=== PATIENT | female | born 1980 | race Caucasian/White ===

== ENCOUNTER 2017-03-17 16:32 | Inpatient (IN) | payer MEDICAID ==
[~2017-03-17] VITALS: Ht 172.7 cm; Wt 61.6 kg
[~2017-03-17 16:32] MED LIST: FAM20T PO; GABA-497 PO
[2017-03-17 20:00] LABS: Basophils # (auto) 0 uL; Basophils % (auto) 0.3 % (0.0-2.0); CONDITION Y; DEFINITIVE SEE PRINTOUT; Eosinophils # (auto) 0 uL; Eosinophils % (auto) 0.2 % (0.0-7.0); Hematocrit 13.5 % (36.0-46.0); Lymphocytes # (auto) 1.2 uL; Lymphocytes % (auto) 13.4 % (10.0-50.0); Mean Corpuscular Hemoglobin 32.2 pg (28.0-32.0); Mean Platelet Volume 8.1 fL (7.4-10.4); Monocytes # (auto) 0.9 uL; Monocytes % (auto) 9.6 % (0.0-12.0); Neutrophils # (auto) 6.8 uL; Neutrophils % (auto) 76.5 % (37.0-80.0); Platelet Count (auto) 259 10^3/uL (140-450); Red Cell Distribution Width 18.8 % (11.6-16.0); White Blood Cell 8.9 10^3/uL (4.4-10.8)
[2017-03-17 20:14] LABS: Albumin 3.6 g/dL (3.4-5.0); Anion Gap 13 (5-15); Aspartate Aminotransferase 39 U/L (15-37); BUN/Creatinine Ratio 15.2; Blood Urea Nitrogen 37 mg/dL (7-18); Carbon Dioxide 21 mmol/L (21-32); Chloride 101 mmol/L (98-107); GFR African American 28 mL/min; GFR Non-African American 23 mL/min; Glucose 138 mg/dL (74-106); Potassium 4.2 mmol/L (3.5-5.1); Sodium 135 mmol/L (136-145)
[2017-03-17 20:18] LABS: Alkaline Phosphatase 90 U/L (45-117); Bilirubin, Total 0.4 mg/dL (0.2-1.0); Total Protein 7.8 g/dL (6.4-8.2)
[2017-03-17 20:28] LABS: Hemoglobin 4.7 g/dL (12.2-16.2)
[2017-03-17] MEDS ORDERED: LORazepam 2MG/ML-1ML VIAL IV ONE (20:45)
[2017-03-17] MEDS ORDERED: SODIUM CHLORIDE 0.9% 1,000 ML IV ONE (20:59)
[2017-03-17] MEDS ORDERED: FAMOTIDINE (10MG/ML) 2ML VL IV ONE (21:00)
[2017-03-17] MEDS ORDERED: ONDANSETRON HCL 4 MG/2 ML VIAL IV ONE (21:00)
[2017-03-17 21:44] LABS: Magnesium 2.6 mg/dL (1.6-2.6)
[2017-03-17 21:52] LABS: INR 1.05 (0.9-1.15); Partial Thromboplastin Time 20.1 sec (22.64-33.71); Prothrombin Time 11.5 sec (9.37-12.3)
[2017-03-17 21:59] LABS: Urine Bilirubin Negative (Negative); Urine Color Red (Yellow); Urine Glucose Normal (Normal); Urine Ketone TRACE (Negative); Urine Nitrite Negative (Negative); Urine RBC 3362 /hpf (0 - 4); Urine Urobilinogen Normal (Negative); Urine pH 5.5 (5.0-8.0)
[2017-03-17 22:02] LABS: Urine Blood 3+ /uL (Negative)
[2017-03-18] VITALS (15 sets, daily range): BP systolic 106–139; BP diastolic 68–84
[2017-03-18] MEDS ORDERED: PANTOPRAZOLE SODIUM 40 MG/10 ML VIAL IV ONE (01:45)
[2017-03-18] MEDS ORDERED: MORPHINE SULF INJ 2 MG/ML SYRINGE 1ML IV PRN (01:45)
[2017-03-18] MEDS ORDERED: ACETAMINOPHEN 325 MG TAB PO PRN (01:45)
[2017-03-18] MEDS ORDERED: TEMAZEPAM 15 MG CAP PO PRN (01:45)
[2017-03-18] MEDS ORDERED: NITROGLYCERIN 0.4 MG SL TAB SL PRN (01:45)
[2017-03-18] MEDS ORDERED: HYDROcodone-ACET 5/325MG TAB PO PRN (01:45)
[2017-03-18] MEDS ORDERED: ONDANSETRON HCL 4 MG/2 ML VIAL IV PRN (01:45)
[2017-03-18] MEDS: SODIUM CHLORIDE 0.9% 1,000 ML IV SCH ×3 (02:29→21:40)
[2017-03-18] MEDS: chlordiazePOXIDE HCL 5 MG CAP PO PRN ×3 (04:57→18:35)
[2017-03-18] MEDS: metroNIDAZOLE 500MG/100ML 100 ML IV SCH ×2 (05:40→14:20)
[2017-03-18] MEDS ORDERED: cefTRIAXone 1GM/50ML D5W 50 ML IV SCH (09:00)
[2017-03-18] MEDS: PANTOPRAZOLE SODIUM 40 MG/10 ML VIAL IV SCH (10:07)
[2017-03-18] MEDS: FOLIC ACID 1 MG TAB PO SCH (10:08)
[2017-03-18] MEDS: THIAMINE HCL 100 MG TAB PO SCH (10:09)
[2017-03-18 10:42] LABS: Hematocrit 23.5 % (36.0-46.0); Hemoglobin 8.1 g/dL (12.2-16.2)
[2017-03-18] MEDS: GABAPENTIN 100 MG CAP PO SCH (21:40)
[2017-03-18] MEDS: SUCRALFATE 1 GM/10 ML ORAL SUSP PO SCH (21:40)
[2017-03-19] MEDS: chlordiazePOXIDE HCL 5 MG CAP PO PRN ×4 (00:09→18:46)
[2017-03-19 05:00] VITALS: BP 116/80
[2017-03-19] MEDS: GABAPENTIN 100 MG CAP PO SCH ×2 (05:26→14:43)
[2017-03-19] MEDS: SUCRALFATE 1 GM/10 ML ORAL SUSP PO SCH ×3 (06:07→16:44)
[2017-03-19 07:44] LABS: Basophils # (auto) 0 uL; Basophils % (auto) 0.6 % (0.0-2.0); CONDITION Y; Eosinophils # (auto) 0.1 uL; Hemoglobin 8.7 g/dL (12.2-16.2); Lymphocytes # (auto) 0.8 uL; Lymphocytes % (auto) 23.6 % (10.0-50.0); Mean Corpuscular Hemoglobin 30.3 pg (28.0-32.0); Mean Corpuscular Hgb Conc. 33.5 g/dL (32.0-36.0); Mean Corpuscular Volume 90.6 fL (80.0-100.0); Mean Platelet Volume 7.6 fL (7.4-10.4); Monocytes # (auto) 0.4 uL; Monocytes % (auto) 10.6 % (0.0-12.0); Neutrophils # (auto) 2.1 uL; Neutrophils % (auto) 61.2 % (37.0-80.0); Platelet Count (auto) 206 10^3/uL (140-450); Red Cell Distribution Width 16.9 % (11.6-16.0); White Blood Cell 3.4 10^3/uL (4.4-10.8)
[2017-03-19 07:49] LABS: Albumin 2.9 g/dL (3.4-5.0); BUN/Creatinine Ratio 24.3; Bilirubin, Total 0.4 mg/dL (0.2-1.0); Calcium 7.8 mg/dL (8.5-10.1); Potassium 3.5 mmol/L (3.5-5.1); Total Protein 6.2 g/dL (6.4-8.2)
[2017-03-19 09:03] VITALS: BP 122/72
[2017-03-19] MEDS: PANTOPRAZOLE SODIUM 40 MG/10 ML VIAL IV SCH (09:34)
[2017-03-19] MEDS: THIAMINE HCL 100 MG TAB PO SCH (09:35)
[2017-03-19] MEDS: FOLIC ACID 1 MG TAB PO SCH (09:35)
[2017-03-19] MEDS ORDERED: OMEP20TA PO (11:30)
[2017-03-19] MEDS ORDERED: IRON150T2 PO (11:30)
[2017-03-19] MEDS ORDERED: SUC1LQ PO (11:30)
[2017-03-19] MEDS ORDERED: CHL5C PO (11:33)
[2017-03-19] MEDS ORDERED: EST0625T PO (12:13)
[2017-03-19] MEDS ORDERED: ESTROGENS, CONJUGATED 25 MG VIAL IM ONE (12:15)
[2017-03-19 12:35] VITALS: BP 100/68
[2017-03-19] MEDS ORDERED: MORPHINE SULFATE 4 MG/ML SYRG IV PRN (14:16)
[2017-03-19 15:15] VITALS: BP 100/68
[2017-03-19 17:00] VITALS: BP 101/53
[2017-03-19] MEDS ORDERED: LORA2TAB89 PO (17:20)
== END 2017-03-19 20:05 | disposition home or self-care (01) | DRG 251 ==
LOC: EDBD 16:32 → ER 16:42 → TELE 16:43 → TELE-EAST 03-18 04:26
PROVIDERS: ADMIT Internal Medicine; ATTEND Hospitalist
PROC: 30233N1 Transfusion of Nonautologous Red Blood Cells into Peripheral Vein, Percutaneous Approach (ICD-10-PCS; principal; 2017-03-18)
DX: R10.9 Unspecified abdominal pain (principal); N17.0 Acute kidney failure with tubular necrosis; K85.20 Alcohol induced acute pancreatitis without necrosis or infection; D64.9 Anemia, unspecified; K86.0 Alcohol-induced chronic pancreatitis; F32.9 Major depressive disorder, single episode, unspecified; F17.210 Nicotine dependence, cigarettes, uncomplicated; I10 Essential (primary) hypertension; K21.9 Gastro-esophageal reflux disease without esophagitis; Z59.0 Homelessness; Z88.6 Allergy status to analgesic agent; Z80.9 Family history of malignant neoplasm, unspecified
CPT/HCPCS: 36415; 36430; 74176; 76705; 80053; 80061; 80307; 81001; 82270; 83690; 83735; 84484; 84702; 85014; 85018; 85025; 85610; 85730; 86850; 86900; 86901; 86920; 87081; 93005; 96361; 96374; 96375; C9113; J0696; J2405; J3490

== ENCOUNTER 2017-07-26 19:02 | Inpatient (IN) | payer MEDICAID ==
[~2017-07-26] VITALS: Ht 172.7 cm; Wt 62.8 kg
[~2017-07-26 19:02] MED LIST changes: +EST0625T PO; -FAM20T PO; +IRON150T2 PO; +OMEP20TA PO; +SUCR1SUS10 PO
[2017-07-26 19:42] LABS: Basophils # (auto) 0.1 uL; Eosinophils # (auto) 0 uL; Hemoglobin 8.3 g/dL (12.2-16.2); Lymphocytes # (auto) 0.7 uL; Nucleated Red Blood Cells % 0.1 %; White Blood Cell 6.1 10^3/uL (4.4-10.8)
[2017-07-26 19:45] LABS: Basophils % (auto) 1.8 % (0.0-2.0); Eosinophils % (auto) 0.5 % (0.0-7.0); Hematocrit 25.5 % (36.0-46.0); Lymphocytes % (auto) 11.8 % (10.0-50.0); Mean Corpuscular Hemoglobin 27.5 pg (28.0-32.0); Mean Corpuscular Hgb Conc. 32.6 g/dL (32.0-36.0); Mean Corpuscular Volume 84.3 fL (80.0-100.0); Mean Platelet Volume 7.4 fL (6.9-10.8); Monocytes # (auto) 0.9 uL; Monocytes % (auto) 13.9 % (0.0-12.0); Neutrophils # (auto) 4.4 uL; Platelet Count (auto) 253 10^3/uL (140-450); Red Cell Distribution Width 16.5 % (11.8-14.3)
[2017-07-26 19:49] LABS: Urine Blood Negative /uL (Negative); Urine Color PINK (Yellow); Urine Glucose Normal (Normal); Urine Ketone 3+ (Negative); Urine Mucus FEW (None Seen); Urine Nitrite Negative (Negative); Urine RBC 1 /hpf (0 - 4); Urine Squamous Epithelial Cell FEW /hpf (<5); Urine pH 6.5 (5.0-8.0)
[2017-07-26 19:53] LABS: INR 1.06 (0.9-1.15); Partial Thromboplastin Time 26.8 sec (22.64-33.71); Prothrombin Time 11.6 sec (9.37-12.3)
[2017-07-26 19:56] LABS: Albumin 3.4 g/dL (3.4-5.0); Amylase 594 U/L (25-115); Anion Gap 17 (5-15); Aspartate Aminotransferase 50 U/L (15-37); BUN/Creatinine Ratio 18.9; Blood Urea Nitrogen 14 mg/dL (7-18); Calcium 9.1 mg/dL (8.5-10.1); Carbon Dioxide 23 mmol/L (21-32); Chloride 98 mmol/L (98-107); GFR African American 112 mL/min; GFR Non-African American 93 mL/min; Glucose 94 mg/dL (74-106); Potassium 3.7 mmol/L (3.5-5.1); Sodium 138 mmol/L (136-145)
[2017-07-26 20:06] LABS: Alkaline Phosphatase 111 U/L (45-117); Bilirubin, Total 0.5 mg/dL (0.2-1.0); Total Protein 8.7 g/dL (6.4-8.2)
[2017-07-26 20:07] LABS: Urine Bilirubin POSITIVE (Negative)
[2017-07-26] MEDS ORDERED: SODIUM CHLORIDE 0.9% 1,000 ML IV ONE (21:00)
[2017-07-26] MEDS ORDERED: LORazepam 2MG/ML-1ML VIAL IV ONE (21:45)
[2017-07-26] MEDS ORDERED: ONDANSETRON HCL 4 MG/2 ML VIAL IV ONE (21:45)
[2017-07-26] MEDS ORDERED: FAMOTIDINE (10MG/ML) 2ML VL IV ONE (21:45)
[2017-07-27] MEDS ORDERED: LORazepam 2MG/ML-1ML VIAL IV PRN (06:00)
[2017-07-27] MEDS ORDERED: SODIUM CHLORIDE 0.9% 1,000 ML IV SCH (06:00)
[2017-07-27] MEDS ORDERED: cefTRIAXone 1GM/50ML D5W 50 ML IV ONE (06:00)
[2017-07-27] MEDS ORDERED: chlordiazePOXIDE HCL 25 MG CAP PO PRN ×2 (06:00→11:45)
[2017-07-27] MEDS ORDERED: ONDANSETRON HCL 4 MG/2 ML VIAL IV PRN (06:00)
[2017-07-27 07:11] LABS: Basophils # (auto) 0.1 uL; Eosinophils # (auto) 0.2 uL; Lymphocytes # (auto) 0.6 uL; Mean Platelet Volume 7.6 fL (6.9-10.8); Monocytes # (auto) 0.5 uL; Neutrophils # (auto) 2.6 uL; White Blood Cell 3.9 10^3/uL (4.4-10.8)
[2017-07-27 07:13] LABS: Basophils % (auto) 1.9 % (0.0-2.0); Eosinophils % (auto) 5.1 % (0.0-7.0); Hematocrit 24.4 % (36.0-46.0); Hemoglobin 7.8 g/dL (12.2-16.2); Mean Corpuscular Hemoglobin 27.9 pg (28.0-32.0); Mean Corpuscular Hgb Conc. 32.1 g/dL (32.0-36.0); Monocytes % (auto) 12.1 % (0.0-12.0); Neutrophils % (auto) 65.9 % (37.0-80.0); Nucleated Red Blood Cells % 0.2 %; Platelet Count (auto) 196 10^3/uL (140-450); Red Cell Distribution Width 16.7 % (11.8-14.3)
[2017-07-27 07:25] LABS: Albumin 2.8 g/dL (3.4-5.0); Calcium 8.1 mg/dL (8.5-10.1); Potassium 3.8 mmol/L (3.5-5.1)
[2017-07-27 07:30] LABS: Bilirubin, Total 0.5 mg/dL (0.2-1.0); Total Protein 7.2 g/dL (6.4-8.2)
[2017-07-27] MEDS ORDERED: THIAMINE HCL 100 MG/ML 2ML VIAL IV SCH (10:00)
[2017-07-27] MEDS ORDERED: MORPHINE SULFATE 10 MG/ML INJ 1ML SDV IV PRN (11:45)
[2017-07-27] MEDS: chlordiazePOXIDE HCL 5 MG CAP PO SCH ×3 (11:58→21:37)
[2017-07-27] MEDS: PANTOPRAZOLE 40 MG TAB PO SCH (11:58)
[2017-07-27] MEDS ORDERED: SODIUM CHLORIDE 0.9% 1,000 ML IV ONE (12:00)
[2017-07-27] MEDS ORDERED: THIAMINE INJ 100 MG, MULTIPLE VITAMIN 10 ML, FOLIC ACID 1 MG, MAGNESIUM SULF SDV 50% 8 ... IV SCH ×5 (12:00)
[2017-07-27 12:03] LABS: Magnesium 2.2 mg/dL (1.6-2.6); Phosphorus 2.7 mg/dL (2.5-4.90)
[2017-07-27] MEDS ORDERED: FOLIC ACID 1 MG in D5W 5% 50 ML INJ ONE (13:00)
[2017-07-27 14:38] VITALS: BP 147/91
[2017-07-27] MEDS: LACTATED RINGER'S 1,000 ML IV SCH ×2 (15:06→19:10)
[2017-07-27 17:50] VITALS: BP 160/100
[2017-07-27] MEDS ORDERED: hydrALAZINE HCL 20 MG/ML VL IV PRN (19:00)
[2017-07-27 22:07] VITALS: BP 138/89
[2017-07-28] MEDS: LACTATED RINGER'S 1,000 ML IV SCH ×3 (02:03→15:44)
[2017-07-28 05:00] VITALS: BP 154/95
[2017-07-28] MEDS: chlordiazePOXIDE HCL 5 MG CAP PO SCH ×4 (05:53→22:11)
[2017-07-28 07:19] LABS: Basophils # (auto) 0.1 uL; Eosinophils # (auto) 0.5 uL; Lymphocytes # (auto) 1.8 uL; Monocytes # (auto) 1.1 uL; Red Cell Distribution Width 16.8 % (11.8-14.3); White Blood Cell 8.7 10^3/uL (4.4-10.8)
[2017-07-28 07:22] LABS: Hematocrit 29.1 % (36.0-46.0); Lymphocytes % (auto) 20.8 % (10.0-50.0); Mean Corpuscular Hemoglobin 27.2 pg (28.0-32.0); Mean Corpuscular Hgb Conc. 30.9 g/dL (32.0-36.0); Mean Corpuscular Volume 88.2 fL (80.0-100.0); Monocytes % (auto) 12.7 % (0.0-12.0); Neutrophils # (auto) 5.2 uL; Neutrophils % (auto) 59.5 % (37.0-80.0); Nucleated Red Blood Cells % 0.2 %; Platelet Count (auto) 307 10^3/uL (140-450)
[2017-07-28 07:44] LABS: BUN/Creatinine Ratio 8.8; Calcium 8.9 mg/dL (8.5-10.1); Magnesium 1.8 mg/dL (1.6-2.6); Potassium 3.5 mmol/L (3.5-5.1)
[2017-07-28 08:00] VITALS: BP 123/84
[2017-07-28 09:00] VITALS: BP 123/84
[2017-07-28] MEDS: PANTOPRAZOLE 40 MG TAB PO SCH (09:44)
[2017-07-28] MEDS: cefTRIAXone 1GM/50ML D5W 50 ML IV SCH (09:46)
[2017-07-28] MEDS: FOLIC ACID 1 MG, THIAMINE INJ 100 MG in D5W 5% 50 ML IV SCH (11:55)
[2017-07-28 13:00] VITALS: BP 147/96
[2017-07-28] MEDS ORDERED: IOHEXOL 300 MG/ML 100ML BOTTLE IJ ONE (16:20)
[2017-07-28 17:00] VITALS: BP 152/86
[2017-07-28 18:28] LABS: Basophils # (auto) 0 uL; Basophils % (auto) 0.7 % (0.0-2.0); Eosinophils # (auto) 0.3 uL; Hematocrit 27.2 % (36.0-46.0); Hemoglobin 8.7 g/dL (12.2-16.2); Lymphocytes # (auto) 0.9 uL; Lymphocytes % (auto) 16.2 % (10.0-50.0); Mean Corpuscular Hemoglobin 27.1 pg (28.0-32.0); Mean Corpuscular Hgb Conc. 31.9 g/dL (32.0-36.0); Mean Corpuscular Volume 85.2 fL (80.0-100.0); Mean Platelet Volume 7.6 fL (6.9-10.8); Monocytes # (auto) 0.8 uL; Monocytes % (auto) 14.4 % (0.0-12.0); Neutrophils # (auto) 3.4 uL; Neutrophils % (auto) 63.7 % (37.0-80.0); Nucleated Red Blood Cells % 0.1 %; Platelet Count (auto) 234 10^3/uL (140-450); Red Cell Distribution Width 16.5 % (11.8-14.3); White Blood Cell 5.4 10^3/uL (4.4-10.8)
[2017-07-28 21:30] VITALS: BP 137/83
[2017-07-29] VITALS (7 sets, daily range): BP systolic 125–155; BP diastolic 92–101
[2017-07-29] MEDS: LACTATED RINGER'S 1,000 ML IV SCH ×5 (04:30→22:51)
[2017-07-29 05:56] LABS: Basophils # (auto) 0 uL; Basophils % (auto) 0.8 % (0.0-2.0); Eosinophils # (auto) 0.3 uL; Hemoglobin 7.9 g/dL (12.2-16.2); Lymphocytes # (auto) 0.6 uL; Mean Platelet Volume 7.8 fL (6.9-10.8); Monocytes # (auto) 0.6 uL
[2017-07-29 05:58] LABS: Eosinophils % (auto) 7.2 % (0.0-7.0); Hematocrit 24.6 % (36.0-46.0); Lymphocytes % (auto) 14.7 % (10.0-50.0); Mean Corpuscular Hemoglobin 27.6 pg (28.0-32.0); Mean Corpuscular Hgb Conc. 32.2 g/dL (32.0-36.0); Mean Corpuscular Volume 85.8 fL (80.0-100.0); Monocytes % (auto) 14.8 % (0.0-12.0); Neutrophils # (auto) 2.4 uL; Neutrophils % (auto) 62.5 % (37.0-80.0); Nucleated Red Blood Cells % 0.2 %; Platelet Count (auto) 188 10^3/uL (140-450); Red Cell Distribution Width 16.4 % (11.8-14.3); White Blood Cell 3.9 10^3/uL (4.4-10.8)
[2017-07-29 06:04] LABS: INR 1.07 (0.9-1.15); Partial Thromboplastin Time 27.6 sec (22.64-33.71); Prothrombin Time 11.7 sec (9.37-12.3)
[2017-07-29] MEDS: chlordiazePOXIDE HCL 5 MG CAP PO SCH ×3 (06:10→22:50)
[2017-07-29 06:25] LABS: Albumin 2.6 g/dL (3.4-5.0); Alkaline Phosphatase 81 U/L (45-117); Anion Gap 13 (5-15); Aspartate Aminotransferase 19 U/L (15-37); BUN/Creatinine Ratio 13.2; Bilirubin, Direct < 0.1 mg/dL (0-0.2); Bilirubin, Total 0.3 mg/dL (0.2-1.0); Blood Urea Nitrogen 5 mg/dL (7-18); Calcium 8.2 mg/dL (8.5-10.1); Carbon Dioxide 23 mmol/L (21-32); Chloride 102 mmol/L (98-107); GFR African American 242 mL/min; GFR Non-African American 200 mL/min; Glucose 85 mg/dL (74-106); Magnesium 1.5 mg/dL (1.6-2.6); Potassium 3.1 mmol/L (3.5-5.1); Sodium 138 mmol/L (136-145); Total Protein 7.1 g/dL (6.4-8.2)
[2017-07-29] MEDS ORDERED: POTASSIUM CHL 20MEQ/50ML 50 ML IV ONE (06:46)
[2017-07-29] MEDS: POTASSIUM CHL 20MEQ/50ML 50 ML IV SCH ×2 (06:55→11:08)
[2017-07-29] MEDS: PANTOPRAZOLE 40 MG TAB PO SCH (09:34)
[2017-07-29] MEDS: cefTRIAXone 1GM/50ML D5W 50 ML IV SCH (09:35)
[2017-07-29 11:14] LABS: Basophils # (auto) 0 uL; Eosinophils # (auto) 0.2 uL; Hemoglobin 7.8 g/dL (12.2-16.2); Lymphocytes # (auto) 0.5 uL; Mean Platelet Volume 7.5 fL (6.9-10.8); Neutrophils # (auto) 2.5 uL; Nucleated Red Blood Cells % 0.1 %
[2017-07-29 11:16] LABS: Eosinophils % (auto) 5.2 % (0.0-7.0); Hematocrit 23.8 % (36.0-46.0); Lymphocytes % (auto) 13.9 % (10.0-50.0); Mean Corpuscular Hemoglobin 27.8 pg (28.0-32.0); Mean Corpuscular Hgb Conc. 32.8 g/dL (32.0-36.0); Mean Corpuscular Volume 84.7 fL (80.0-100.0); Monocytes # (auto) 0.6 uL; Monocytes % (auto) 14.9 % (0.0-12.0); Platelet Count (auto) 199 10^3/uL (140-450); Red Cell Distribution Width 16.3 % (11.8-14.3); White Blood Cell 3.9 10^3/uL (4.4-10.8)
[2017-07-29] MEDS: FOLIC ACID 1 MG, THIAMINE INJ 100 MG in D5W 5% 50 ML IV SCH (15:44)
[2017-07-29] MEDS ORDERED: CHLORDIAZEPOXIDE HCL 10 MG CAP PO PRN (18:30)
[2017-07-29] MEDS ORDERED: chlordiazePOXIDE HCL 5 MG CAP PO PRN (18:45)
[2017-07-29] MEDS: ENOXAPARIN SOD 40 MG/0.4 ML SYRINGE SC SCH (22:50)
[2017-07-30] VITALS (7 sets, daily range): BP systolic 134–149; BP diastolic 90–101
[2017-07-30] MEDS: LACTATED RINGER'S 1,000 ML IV SCH ×2 (05:40→15:30)
[2017-07-30] MEDS: chlordiazePOXIDE HCL 5 MG CAP PO SCH ×3 (07:01→21:16)
[2017-07-30 07:05] LABS: Basophils # (auto) 0 uL; Basophils % (auto) 0.8 % (0.0-2.0); Eosinophils # (auto) 0.2 uL; Eosinophils % (auto) 5.3 % (0.0-7.0); Hematocrit 24.4 % (36.0-46.0); Lymphocytes # (auto) 0.5 uL; Lymphocytes % (auto) 14.4 % (10.0-50.0); Mean Corpuscular Hemoglobin 27.5 pg (28.0-32.0); Mean Corpuscular Hgb Conc. 32.6 g/dL (32.0-36.0); Mean Corpuscular Volume 84.2 fL (80.0-100.0); Mean Platelet Volume 8.1 fL (6.9-10.8); Monocytes # (auto) 0.6 uL; Monocytes % (auto) 16.6 % (0.0-12.0); Neutrophils # (auto) 2.2 uL; Neutrophils % (auto) 62.9 % (37.0-80.0); Nucleated Red Blood Cells % 0.1 %; Platelet Count (auto) 186 10^3/uL (140-450); Red Cell Distribution Width 16.5 % (11.8-14.3); White Blood Cell 3.6 10^3/uL (4.4-10.8)
[2017-07-30 07:16] LABS: INR 1.06 (0.9-1.15); Partial Thromboplastin Time 28.1 sec (22.64-33.71); Prothrombin Time 11.6 sec (9.37-12.3)
[2017-07-30 07:31] LABS: Albumin 2.7 g/dL (3.4-5.0); BUN/Creatinine Ratio 12.5; Bilirubin, Direct 0.1 mg/dL (0-0.2); Bilirubin, Total 0.3 mg/dL (0.2-1.0); Calcium 8.5 mg/dL (8.5-10.1); Magnesium 1.4 mg/dL (1.6-2.6); Potassium 3.1 mmol/L (3.5-5.1); Total Protein 7.2 g/dL (6.4-8.2)
[2017-07-30] MEDS: cefTRIAXone 1GM/50ML D5W 50 ML IV SCH (10:04)
[2017-07-30] MEDS: PANTOPRAZOLE 40 MG TAB PO SCH (10:04)
[2017-07-30] MEDS ORDERED: SODIUM CHLORIDE 0.9% 2,000 ML IV ONE (11:30)
[2017-07-30] MEDS ORDERED: MAGNESIUM SULFATE 1GM/100ML 100 ML IV SCH (12:00)
[2017-07-30] MEDS: POTASSIUM CHL 20MEQ/50ML 50 ML IV SCH ×2 (13:23→15:38)
[2017-07-30] MEDS: FOLIC ACID 1 MG, THIAMINE INJ 100 MG in D5W 5% 50 ML IV SCH (17:00)
[2017-07-30] MEDS: ENOXAPARIN SOD 40 MG/0.4 ML SYRINGE SC SCH (20:36)
[2017-07-30] MEDS: MAGNESIUM SULFATE 1GM/100ML 100 ML IV SCH ×2 (21:17→23:09)
[2017-07-30] MEDS: HYDROcodone-ACET 5/325MG TAB PO PRN (23:12)
[2017-07-31] MEDS: MAGNESIUM SULFATE 1GM/100ML 100 ML IV SCH (00:39)
[2017-07-31] MEDS: LACTATED RINGER'S 1,000 ML IV SCH ×5 (00:39→21:54)
[2017-07-31 04:41] VITALS: BP 138/83
[2017-07-31 05:28] LABS: Basophils # (auto) 0 uL; Eosinophils # (auto) 0.2 uL; Lymphocytes # (auto) 0.6 uL; Monocytes # (auto) 0.6 uL
[2017-07-31 05:30] LABS: Eosinophils % (auto) 5.3 % (0.0-7.0); Hemoglobin 8.1 g/dL (12.2-16.2); Lymphocytes % (auto) 18.4 % (10.0-50.0); Mean Corpuscular Hemoglobin 27.5 pg (28.0-32.0); Mean Corpuscular Hgb Conc. 32.3 g/dL (32.0-36.0); Mean Platelet Volume 8.3 fL (6.9-10.8); Monocytes % (auto) 16.6 % (0.0-12.0); Neutrophils % (auto) 58.7 % (37.0-80.0); Nucleated Red Blood Cells % 0.3 %; Platelet Count (auto) 204 10^3/uL (140-450); Red Cell Distribution Width 15.9 % (11.8-14.3); White Blood Cell 3.4 10^3/uL (4.4-10.8)
[2017-07-31 05:44] LABS: Albumin 2.6 g/dL (3.4-5.0); BUN/Creatinine Ratio 10.3; Bilirubin, Direct 0.1 mg/dL (0-0.2); Bilirubin, Total 0.3 mg/dL (0.2-1.0); Calcium 8.4 mg/dL (8.5-10.1); Magnesium 2.3 mg/dL (1.6-2.6); Potassium 3.3 mmol/L (3.5-5.1); Total Protein 7.2 g/dL (6.4-8.2)
[2017-07-31] MEDS: cefTRIAXone 1GM/50ML D5W 50 ML IV SCH (08:30)
[2017-07-31 09:00] VITALS: BP 141/78
[2017-07-31] MEDS: PANTOPRAZOLE 40 MG TAB PO SCH ×2 (09:43→09:58)
[2017-07-31] MEDS: chlordiazePOXIDE HCL 5 MG CAP PO SCH ×3 (09:43→21:54)
[2017-07-31] MEDS ORDERED: chlordiazePOXIDE HCL 5 MG CAP PO PRN (10:00)
[2017-07-31] MEDS: FOLIC ACID 1 MG, THIAMINE INJ 100 MG in D5W 5% 50 ML IV SCH (10:13)
[2017-07-31 13:00] VITALS: BP 142/90
[2017-07-31] MEDS: HYDROcodone-ACET 5/325MG TAB PO PRN (16:13)
[2017-07-31 17:00] VITALS: BP 121/82
[2017-07-31 20:00] VITALS: BP 143/90
[2017-07-31] MEDS: ENOXAPARIN SOD 40 MG/0.4 ML SYRINGE SC SCH (20:28)
[2017-07-31 22:00] VITALS: BP 143/90
[2017-08-01] MEDS: LACTATED RINGER'S 1,000 ML IV SCH ×4 (04:43→21:44)
[2017-08-01] MEDS: HYDROcodone-ACET 5/325MG TAB PO PRN ×2 (04:45→15:08)
[2017-08-01 05:21] VITALS: BP 152/99
[2017-08-01 05:44] LABS: Basophils # (auto) 0.1 uL; Mean Corpuscular Hemoglobin 27.1 pg (28.0-32.0); Mean Platelet Volume 8.4 fL (6.9-10.8); Neutrophils # (auto) 3.5 uL
[2017-08-01 05:47] LABS: Basophils % (auto) 1.2 % (0.0-2.0); Eosinophils # (auto) 0.2 uL; Eosinophils % (auto) 4.4 % (0.0-7.0); Hematocrit 24.7 % (36.0-46.0); Hemoglobin 7.9 g/dL (12.2-16.2); Lymphocytes # (auto) 0.6 uL; Lymphocytes % (auto) 12.2 % (10.0-50.0); Mean Corpuscular Volume 84.6 fL (80.0-100.0); Monocytes # (auto) 0.7 uL; Monocytes % (auto) 13.3 % (0.0-12.0); Neutrophils % (auto) 68.9 % (37.0-80.0); Platelet Count (auto) 269 10^3/uL (140-450); Red Cell Distribution Width 15.7 % (11.8-14.3)
[2017-08-01 06:15] LABS: Albumin 2.7 g/dL (3.4-5.0); Alkaline Phosphatase 75 U/L (45-117); Anion Gap 10 (5-15); Aspartate Aminotransferase 13 U/L (15-37); BUN/Creatinine Ratio 10.9; Bilirubin, Direct < 0.1 mg/dL (0-0.2); Bilirubin, Total 0.3 mg/dL (0.2-1.0); Blood Urea Nitrogen 5 mg/dL (7-18); Calcium 8.5 mg/dL (8.5-10.1); Carbon Dioxide 24 mmol/L (21-32); Chloride 103 mmol/L (98-107); GFR African American 194 mL/min; GFR Non-African American 161 mL/min; Glucose 88 mg/dL (74-106); Magnesium 1.6 mg/dL (1.6-2.6); Potassium 3.8 mmol/L (3.5-5.1); Sodium 137 mmol/L (136-145); Total Protein 7.5 g/dL (6.4-8.2)
[2017-08-01] MEDS: chlordiazePOXIDE HCL 5 MG CAP PO SCH (08:49)
[2017-08-01] MEDS: cefTRIAXone 1GM/50ML D5W 50 ML IV SCH (08:49)
[2017-08-01 09:00] VITALS: BP 139/89
[2017-08-01] MEDS: PANTOPRAZOLE 40 MG TAB PO SCH (09:34)
[2017-08-01] MEDS: FOLIC ACID 1 MG, THIAMINE INJ 100 MG in D5W 5% 50 ML IV SCH (09:34)
[2017-08-01] MEDS ORDERED: cloNIDine HCL 0.1 MG TAB PO PRN (11:15)
[2017-08-01 12:00] VITALS: BP 137/92
[2017-08-01 17:00] VITALS: BP 155/94
[2017-08-01] MEDS: chlordiazePOXIDE HCL 5 MG CAP PO PRN (21:47)
[2017-08-01 22:00] VITALS: BP 137/92
[2017-08-02 05:00] VITALS: BP 150/99
[2017-08-02] MEDS: HYDROcodone-ACET 5/325MG TAB PO PRN ×3 (06:43→23:18)
[2017-08-02] MEDS: cefTRIAXone 1GM/50ML D5W 50 ML IV SCH (08:41)
[2017-08-02 09:00] VITALS: BP 134/91
[2017-08-02] MEDS: PANTOPRAZOLE 40 MG TAB PO SCH (10:01)
[2017-08-02] MEDS: chlordiazePOXIDE HCL 5 MG CAP PO PRN ×2 (10:08→21:52)
[2017-08-02] MEDS: FOLIC ACID 1 MG, THIAMINE INJ 100 MG in D5W 5% 50 ML IV SCH (10:44)
[2017-08-02] MEDS: LACTATED RINGER'S 1,000 ML IV SCH (11:00)
[2017-08-02 13:00] VITALS: BP 121/79
[2017-08-02 17:00] VITALS: BP 124/85
[2017-08-02 22:10] VITALS: BP 128/76
[2017-08-03] MEDS: LACTATED RINGER'S 1,000 ML IV SCH ×2 (00:41→17:40)
[2017-08-03 05:31] VITALS: BP 134/87
[2017-08-03 05:53] LABS: Basophils # (auto) 0.1 uL; Eosinophils # (auto) 0.3 uL; Hemoglobin 7.7 g/dL (12.2-16.2); Lymphocytes # (auto) 0.9 uL; Mean Corpuscular Volume 83.8 fL (80.0-100.0); Mean Platelet Volume 8.4 fL (6.9-10.8); Monocytes # (auto) 0.5 uL; Neutrophils # (auto) 1.8 uL; Nucleated Red Blood Cells % 0.1 %; Platelet Count (auto) 313 10^3/uL (140-450); White Blood Cell 3.6 10^3/uL (4.4-10.8)
[2017-08-03 05:55] LABS: Basophils % (auto) 2.5 % (0.0-2.0); Hematocrit 23.8 % (36.0-46.0); Lymphocytes % (auto) 25.2 % (10.0-50.0); Mean Corpuscular Hemoglobin 27.2 pg (28.0-32.0); Mean Corpuscular Hgb Conc. 32.4 g/dL (32.0-36.0); Neutrophils % (auto) 49.3 % (37.0-80.0); Red Cell Distribution Width 16.2 % (11.8-14.3)
[2017-08-03 06:04] LABS: INR 1.09 (0.9-1.15); Prothrombin Time 11.9 sec (9.37-12.3)
[2017-08-03 06:13] LABS: Albumin 2.3 g/dL (3.4-5.0); Anion Gap 8 (5-15); Aspartate Aminotransferase 13 U/L (15-37); BUN/Creatinine Ratio 8.2; Blood Urea Nitrogen 4 mg/dL (7-18); Calcium 8.6 mg/dL (8.5-10.1); Carbon Dioxide 26 mmol/L (21-32); Chloride 107 mmol/L (98-107); GFR African American 181 mL/min; GFR Non-African American 149 mL/min; Glucose 91 mg/dL (74-106); Magnesium 1.6 mg/dL (1.6-2.6); Potassium 3.6 mmol/L (3.5-5.1); Sodium 141 mmol/L (136-145)
[2017-08-03 06:21] LABS: Alkaline Phosphatase 61 U/L (45-117); Bilirubin, Total < 0.1 mg/dL (0.2-1.0); Total Protein 6.5 g/dL (6.4-8.2)
[2017-08-03 09:00] VITALS: BP 130/87
[2017-08-03] MEDS: cefTRIAXone 1GM/50ML D5W 50 ML IV SCH (09:10)
[2017-08-03] MEDS: PANTOPRAZOLE 40 MG TAB PO SCH (10:27)
[2017-08-03] MEDS: chlordiazePOXIDE HCL 5 MG CAP PO PRN ×2 (10:27→21:09)
[2017-08-03] MEDS: FOLIC ACID 1 MG, THIAMINE INJ 100 MG in D5W 5% 50 ML IV SCH (10:28)
[2017-08-03 13:00] VITALS: BP 135/90
[2017-08-03 17:00] VITALS: BP 142/84
[2017-08-03 21:32] VITALS: BP 133/86
[2017-08-04] MEDS: LACTATED RINGER'S 1,000 ML IV SCH ×3 (04:23→12:59)
[2017-08-04] MEDS: HYDROcodone-ACET 5/325MG TAB PO PRN (04:29)
[2017-08-04 05:00] VITALS: BP 135/91
[2017-08-04 06:06] LABS: Basophils # (auto) 0.1 uL; Eosinophils # (auto) 0.2 uL; Hemoglobin 8.4 g/dL (12.2-16.2); Monocytes # (auto) 0.6 uL; Neutrophils # (auto) 2.3 uL
[2017-08-04 06:09] LABS: Basophils % (auto) 1.4 % (0.0-2.0); Eosinophils % (auto) 6.2 % (0.0-7.0); Hematocrit 26.4 % (36.0-46.0); Lymphocytes # (auto) 0.9 uL; Lymphocytes % (auto) 21.9 % (10.0-50.0); Mean Corpuscular Hemoglobin 26.6 pg (28.0-32.0); Mean Corpuscular Hgb Conc. 31.8 g/dL (32.0-36.0); Mean Corpuscular Volume 83.7 fL (80.0-100.0); Mean Platelet Volume 8.9 fL (6.9-10.8); Monocytes % (auto) 13.8 % (0.0-12.0); Neutrophils % (auto) 56.7 % (37.0-80.0); Nucleated Red Blood Cells % 0.1 %; Platelet Count (auto) 417 10^3/uL (140-450); Red Cell Distribution Width 16.6 % (11.8-14.3)
[2017-08-04 06:11] LABS: INR 1.05 (0.9-1.15); Prothrombin Time 11.5 sec (9.37-12.3)
[2017-08-04 06:27] LABS: Potassium 3.7 mmol/L (3.5-5.1)
[2017-08-04 06:39] LABS: Albumin 2.7 g/dL (3.4-5.0); BUN/Creatinine Ratio 9.8; Bilirubin, Total 0.1 mg/dL (0.2-1.0); Calcium 9.3 mg/dL (8.5-10.1); Magnesium 1.8 mg/dL (1.6-2.6)
[2017-08-04 08:00] VITALS: BP 121/84
[2017-08-04 09:00] VITALS: BP 121/84
[2017-08-04] MEDS: cefTRIAXone 1GM/50ML D5W 50 ML IV SCH (09:14)
[2017-08-04] MEDS: PANTOPRAZOLE 40 MG TAB PO SCH (10:34)
[2017-08-04] MEDS: FOLIC ACID 1 MG, THIAMINE INJ 100 MG in D5W 5% 50 ML IV SCH (10:34)
[2017-08-04] MEDS: chlordiazePOXIDE HCL 5 MG CAP PO PRN (10:34)
[2017-08-04 11:07] VITALS: BP 160/100
[2017-08-04 13:00] VITALS: BP 112/70
== END 2017-08-04 13:15 | disposition home or self-care (01) | DRG 775 ==
LOC: ER 19:02 → OVERFLOW 19:03 → CENTRAL 07-27 12:56
PROVIDERS: ADMIT Nurse Practitioner Family; ATTEND Internal Medicine
DX: F10.239 Alcohol dependence with withdrawal, unspecified (principal); K85.20 Alcohol induced acute pancreatitis without necrosis or infection; K70.31 Alcoholic cirrhosis of liver with ascites; E44.0 Moderate protein-calorie malnutrition; N39.0 Urinary tract infection, site not specified; F15.10 Other stimulant abuse, uncomplicated; D50.9 Iron deficiency anemia, unspecified; G40.509 Epileptic seizures related to external causes, not intractable, without status epilepticus; F10.20 Alcohol dependence, uncomplicated; K29.80 Duodenitis without bleeding
CPT/HCPCS: 36415; 74176; 74178; 74181; 76705; 80048; 80053; 80061; 80076; 80307; 81001; 81025; 82150; 82270; 83540; 83550; 83690; 83735; 84100; 84484; 84702; 85025; 85610; 85730; 87045; 87081; 87493; 87899; 93005; 96361; 96374; 96375; J0696; J2405; J3490; J7060

== ENCOUNTER 2018-01-05 18:54 | Inpatient (IN) | payer MEDICAID ==
[~2018-01-05] VITALS: Ht 172.7 cm; Wt 72.8 kg
[~2018-01-05 18:54] MED LIST changes: -GABA-497 PO; +GABA300C10 PO
[2018-01-05 20:22] LABS: Basophils # (auto) 0 uL; Lymphocytes # (auto) 1.8 uL; Monocytes # (auto) 0.7 uL; Neutrophils # (auto) 4.1 uL; Nucleated Red Blood Cells % 0.2 %
[2018-01-05 20:24] LABS: Basophils % (auto) 0.6 % (0.0-2.0); Eosinophils # (auto) 0.1 uL; Eosinophils % (auto) 0.8 % (0.0-7.0); Hematocrit 30.8 % (36.0-46.0); Hemoglobin 9.8 g/dL (12.2-16.2); Lymphocytes % (auto) 27.4 % (10.0-50.0); Mean Corpuscular Hemoglobin 22.6 pg (28.0-32.0); Mean Corpuscular Hgb Conc. 31.9 g/dL (32.0-36.0); Mean Corpuscular Volume 70.8 fL (80.0-100.0); Neutrophils % (auto) 61.2 % (37.0-80.0); Platelet Count (auto) 235 10^3/uL (140-450); Red Blood Cells 4.35 10^6/uL (4.0-5.20); Red Cell Distribution Width 18.2 % (11.8-14.3); White Blood Cell 6.7 10^3/uL (4.4-10.8)
[2018-01-05 20:36] LABS: Albumin 3.8 g/dL (3.4-5.0); BUN/Creatinine Ratio 8.8; Bilirubin, Total 0.3 mg/dL (0.2-1.0); Calcium 8.9 mg/dL (8.5-10.1); Potassium 3.9 mmol/L (3.5-5.1); Total Protein 8.5 g/dL (6.4-8.2)
[2018-01-05] MEDS ORDERED: SODIUM CHLORIDE 0.9% 1,000 ML IV ONE (21:45)
[2018-01-05] MEDS ORDERED: NALBUPHINE HCL 10 MG/1ml INJECTION IV ONE (22:30)
[2018-01-05] MEDS ORDERED: ONDANSETRON HCL 4 MG/2 ML VIAL IV ONE (22:30)
[2018-01-05] MEDS ORDERED: methylPREDNISolone SOD SUCC 125 MG/2 ML VL ONE (23:10)
[2018-01-05] MEDS ORDERED: diphenhdrAMINE HCL 50 MG/1 ML VL ONE (23:10)
[2018-01-06 02:06] LABS: Urine Specific Gravity 1.009 (1.001-1.035)
[2018-01-06 02:07] LABS: Urine Bacteria FEW /hpf (None Seen); Urine Blood Negative /uL (Negative); Urine WBC 1 /hpf (0 - 5)
[2018-01-06] MEDS ORDERED: TEMAZEPAM 15 MG CAP PO PRN (03:15)
[2018-01-06] MEDS ORDERED: MORPHINE SULFATE 8mg/ml INJ SDV IV PRN (03:15)
[2018-01-06] MEDS ORDERED: cefTRIAXone 1GM/10ml IVPUSH 10 ML IV ONE (03:15)
[2018-01-06] MEDS ORDERED: PANTOPRAZOLE 40 MG/10 ML VIAL IV ONE (03:15)
[2018-01-06] MEDS ORDERED: LACTATED RINGER'S 1,000 ML IV SCH (03:15)
[2018-01-06] MEDS ORDERED: ACETAMINOPHEN 325 MG TAB PO PRN (03:15)
[2018-01-06] MEDS ORDERED: ONDANSETRON HCL 4 MG/2 ML VIAL IV PRN (03:15)
[2018-01-06 04:30] VITALS: BP 120/76
[2018-01-06 05:12] VITALS: BP 120/76
[2018-01-06] MEDS: GABAPENTIN 300 MG CAP PO SCH ×3 (05:58→22:03)
[2018-01-06] MEDS: FOLIC ACID 1 MG TAB PO SCH (08:25)
[2018-01-06] MEDS: PANTOPRAZOLE 40 MG/10 ML VIAL IV SCH (08:25)
[2018-01-06] MEDS: ENOXAPARIN SOD 40 MG/0.4 ML SYRINGE SC SCH (08:26)
[2018-01-06] MEDS: HYDROcodone-ACET 5/325MG TAB PO PRN ×2 (08:26→15:11)
[2018-01-06 08:36] VITALS: BP 109/71
[2018-01-06 13:16] VITALS: BP 99/53
[2018-01-06] MEDS: LACTATED RINGER'S 1,000 ML IV SCH ×2 (15:12→22:03)
[2018-01-06 16:28] VITALS: BP 105/67
[2018-01-06 22:00] VITALS: BP 118/60
[2018-01-07 04:55] VITALS: BP 91/53
[2018-01-07] MEDS: GABAPENTIN 300 MG CAP PO SCH ×3 (05:38→22:49)
[2018-01-07 06:41] LABS: Basophils # (auto) 0 uL; Basophils % (auto) 0.7 % (0.0-2.0); Eosinophils # (auto) 0.1 uL; Lymphocytes # (auto) 1.6 uL; Mean Corpuscular Hemoglobin 22.5 pg (28.0-32.0); Neutrophils # (auto) 1.9 uL
[2018-01-07 06:45] LABS: Eosinophils % (auto) 1.9 % (0.0-7.0); Hematocrit 27.3 % (36.0-46.0); Hemoglobin 8.7 g/dL (12.2-16.2); Lymphocytes % (auto) 39.5 % (10.0-50.0); Mean Corpuscular Hgb Conc. 31.9 g/dL (32.0-36.0); Mean Corpuscular Volume 70.6 fL (80.0-100.0); Monocytes # (auto) 0.5 uL; Monocytes % (auto) 11.4 % (0.0-12.0); Neutrophils % (auto) 46.5 % (37.0-80.0); Nucleated Red Blood Cells % 0.1 %; Platelet Count (auto) 191 10^3/uL (140-450); Red Blood Cells 3.86 10^6/uL (4.0-5.20); Red Cell Distribution Width 17.9 % (11.8-14.3)
[2018-01-07 07:05] LABS: BUN/Creatinine Ratio 18.6; Calcium 8.3 mg/dL (8.5-10.1); Magnesium 1.8 mg/dL (1.6-2.6); Potassium 3.8 mmol/L (3.5-5.1)
[2018-01-07 07:08] LABS: Bilirubin, Total 0.3 mg/dL (0.2-1.0); Total Protein 6.7 g/dL (6.4-8.2)
[2018-01-07 08:00] VITALS: BP 117/65
[2018-01-07] MEDS: LACTATED RINGER'S 1,000 ML IV SCH ×3 (08:45→16:31)
[2018-01-07] MEDS: HYDROcodone-ACET 5/325MG TAB PO PRN ×3 (08:46→19:47)
[2018-01-07 08:51] VITALS: BP 117/65
[2018-01-07] MEDS ORDERED: cefTRIAXone 1GM/10ml IVPUSH 10 ML IV SCH (09:00)
[2018-01-07] MEDS: ENOXAPARIN SOD 40 MG/0.4 ML SYRINGE SC SCH (10:38)
[2018-01-07] MEDS: FOLIC ACID 1 MG TAB PO SCH (10:38)
[2018-01-07] MEDS: PANTOPRAZOLE 40 MG/10 ML VIAL IV SCH (10:38)
[2018-01-07 12:22] VITALS: BP 112/63
[2018-01-07] MEDS ORDERED: POTASSIUM CHL 20MEQ/100ML 100 ML IV ONE (12:30)
[2018-01-07] MEDS ORDERED: MAGNESIUM SULFATE 1GM/100ML 100 ML IV ONE (12:30)
[2018-01-07 16:30] VITALS: BP 111/73
[2018-01-07 22:00] VITALS: BP 113/68
[2018-01-08 05:00] VITALS: BP 116/77
[2018-01-08] MEDS: GABAPENTIN 300 MG CAP PO SCH ×3 (06:47→21:44)
[2018-01-08 06:52] LABS: Hematocrit 27.6 % (36.0-46.0); Hemoglobin 8.7 g/dL (12.2-16.2)
[2018-01-08 07:06] LABS: Magnesium 1.7 mg/dL (1.6-2.6); Potassium 3.7 mmol/L (3.5-5.1)
[2018-01-08] MEDS: HYDROcodone-ACET 5/325MG TAB PO PRN ×3 (07:55→21:45)
[2018-01-08] MEDS: FOLIC ACID 1 MG TAB PO SCH (09:17)
[2018-01-08] MEDS: PANTOPRAZOLE 40 MG/10 ML VIAL IV SCH (09:17)
[2018-01-08] MEDS: ENOXAPARIN SOD 40 MG/0.4 ML SYRINGE SC SCH (09:17)
[2018-01-08 09:35] VITALS: BP 128/87
[2018-01-08 10:16] LABS: Urine Bacteria NONE SEEN /hpf (None Seen); Urine Blood Negative /uL (Negative); Urine Mucus FEW (None Seen); Urine Specific Gravity 1.012 (1.001-1.035); Urine WBC 1 /hpf (0 - 5)
[2018-01-08] MEDS ORDERED: LACTULOSE 20Gm/30ML SOLN PO PRN (10:30)
[2018-01-08] MEDS: LACTATED RINGER'S 1,000 ML IV SCH ×2 (11:30→21:55)
[2018-01-08] MEDS ORDERED: MAGNESIUM SULFATE 1GM/100ML 100 ML IV ONE (13:15)
[2018-01-08 13:35] VITALS: BP 103/70
[2018-01-08 17:00] VITALS: BP 93/56
[2018-01-08 22:00] VITALS: BP 113/74
[2018-01-09 05:05] VITALS: BP 94/51
[2018-01-09] MEDS: GABAPENTIN 300 MG CAP PO SCH ×3 (05:51→21:37)
[2018-01-09 06:47] LABS: Amylase 227 U/L (25-115); Lipase 722 U/L (73-393)
[2018-01-09] MEDS: HYDROcodone-ACET 5/325MG TAB PO PRN ×3 (07:48→20:14)
[2018-01-09 09:00] VITALS: BP 114/48
[2018-01-09] MEDS: LACTATED RINGER'S 1,000 ML IV SCH ×2 (09:15→21:37)
[2018-01-09] MEDS ORDERED: POTASSIUM CHL 20 Meq TABLET PO ONE (09:30)
[2018-01-09] MEDS ORDERED: MAGNESIUM SULFATE 1GM/100ML 100 ML IV ONE (09:30)
[2018-01-09] MEDS: FOLIC ACID 1 MG TAB PO SCH (10:05)
[2018-01-09] MEDS: ENOXAPARIN SOD 40 MG/0.4 ML SYRINGE SC SCH (10:06)
[2018-01-09] MEDS: PANTOPRAZOLE 40 MG/10 ML VIAL IV SCH (10:07)
[2018-01-09] MEDS ORDERED: MORPHINE SULFATE 8mg/ml INJ SDV IV PRN (11:00)
[2018-01-09] MEDS ORDERED: cefTRIAXone 1GM/10ml IVPUSH 10 ML IV ONE (11:00)
[2018-01-09 12:41] VITALS: BP 114/75
[2018-01-09 17:00] VITALS: BP 115/60
[2018-01-09 20:00] VITALS: BP 111/69
[2018-01-09 22:00] VITALS: BP 111/69
[2018-01-10] MEDS: HYDROcodone-ACET 5/325MG TAB PO PRN ×3 (00:18→14:58)
[2018-01-10 05:02] VITALS: BP 97/63
[2018-01-10] MEDS: GABAPENTIN 300 MG CAP PO SCH ×2 (05:39→14:19)
[2018-01-10] MEDS: LACTATED RINGER'S 1,000 ML IV SCH ×2 (05:39→15:15)
[2018-01-10 05:45] LABS: Magnesium 1.7 mg/dL (1.6-2.6); Potassium 3.8 mmol/L (3.5-5.1)
[2018-01-10 09:00] VITALS: BP 109/62
[2018-01-10] MEDS ORDERED: cefTRIAXone 1GM/10ml IVPUSH 10 ML IV SCH (09:00)
[2018-01-10] MEDS ORDERED: MAGNESIUM SULFATE 1GM/100ML 100 ML IV ONE (09:30)
[2018-01-10] MEDS: PANTOPRAZOLE 40 MG/10 ML VIAL IV SCH (10:22)
[2018-01-10] MEDS: FOLIC ACID 1 MG TAB PO SCH (10:23)
[2018-01-10] MEDS: ENOXAPARIN SOD 40 MG/0.4 ML SYRINGE SC SCH (10:23)
[2018-01-10] MEDS ORDERED: HYDR-4683 PO (11:35)
[2018-01-10 13:00] VITALS: BP 109/65
[2018-01-10 17:00] VITALS: BP 119/82
== END 2018-01-10 18:05 | disposition home or self-care (01) | DRG 282 ==
LOC: ER 18:54 → OVERFLOW 18:55 → WEST WING 01-06 04:33
PROVIDERS: ADMIT Nurse Practitioner; ATTEND Internal Medicine
DX: K85.90 Acute pancreatitis without necrosis or infection, unspecified (principal); I10 Essential (primary) hypertension; E86.0 Dehydration; D64.9 Anemia, unspecified; K21.9 Gastro-esophageal reflux disease without esophagitis; G47.00 Insomnia, unspecified; N39.0 Urinary tract infection, site not specified; F32.9 Major depressive disorder, single episode, unspecified; K86.1 Other chronic pancreatitis; F17.210 Nicotine dependence, cigarettes, uncomplicated; Z88.6 Allergy status to analgesic agent; Z88.8 Allergy status to other drugs, medicaments and biological substances; Z79.899 Other long term (current) drug therapy; Z71.3 Dietary counseling and surveillance
CPT/HCPCS: 36415; 74176; 80053; 81001; 82150; 83690; 83735; 84132; 85014; 85018; 85025; 87086; 96361; 96374; 96375; C9113; J2270; J2405; J3480

== ENCOUNTER 2018-06-19 12:02 | Emergency (ER) | payer MEDICAID ==
[~2018-06-19] VITALS: Ht 172.7 cm; Wt 61.2 kg
[~2018-06-19 12:02] MED LIST changes: +HYDR-4683 PO
[2018-06-19 12:35] LABS: Urine Bacteria MOD /hpf (None Seen); Urine Blood Negative /uL (Negative); Urine Mucus FEW (None Seen); Urine WBC 2 /hpf (0 - 5)
[2018-06-19 13:30] LABS: Basophils # (auto) 0 uL; Basophils % (auto) 0.7 % (0.0-2.0); Eosinophils # (auto) 0 uL; Eosinophils % (auto) 0.8 % (0.0-7.0); Hematocrit 36.9 % (36.0-46.0); Hemoglobin 12.5 g/dL (12.2-16.2); Lymphocytes # (auto) 1.6 uL; Mean Corpuscular Hemoglobin 29.2 pg (28.0-32.0); Monocytes # (auto) 0.5 uL; Monocytes % (auto) 8.7 % (0.0-12.0); Neutrophils # (auto) 3.4 uL; Neutrophils % (auto) 61.8 % (37.0-80.0); Nucleated Red Blood Cells % 0.1 %; Platelet Count (auto) 223 10^3/uL (140-450); Red Blood Cells 4.28 10^6/uL (4.0-5.20); Red Cell Distribution Width 14.5 % (11.8-14.3); White Blood Cell 5.5 10^3/uL (4.4-10.8)
[2018-06-19 13:47] LABS: Albumin 3.9 g/dL (3.4-5.0); Calcium 8.8 mg/dL (8.5-10.1); Potassium 4.1 mmol/L (3.5-5.1)
[2018-06-19 13:49] LABS: BUN/Creatinine Ratio 9.3
[2018-06-19 13:52] LABS: Bilirubin, Total 0.5 mg/dL (0.2-1.0)
[2018-06-19 13:55] VITALS: BP 127/88
[2018-06-19] MEDS ORDERED: SODIUM CHLORIDE 0.9% 1,000 ML IV ONE (15:15)
[2018-06-19] MEDS ORDERED: ONDANSETRON HCL 4 MG/2 ML VIAL IV ONE (15:15)
[2018-06-19] MEDS ORDERED: KETOROLAC TROMETH 30 MG/ML 1ML VIAL IV ONE (15:15)
== END 2018-06-19 17:45 | disposition home or self-care (01) ==
LOC: ER 12:02
DX: K86.0 Alcohol-induced chronic pancreatitis (principal); R74.8 Abnormal levels of other serum enzymes; F17.210 Nicotine dependence, cigarettes, uncomplicated; Z88.6 Allergy status to analgesic agent; Z88.8 Allergy status to other drugs, medicaments and biological substances
CPT/HCPCS: 36415; 74176; 80053; 81001; 81025; 83690; 85025; 96361; 96374; 96375; 99285; J1885; J2405; J7030

== ENCOUNTER 2018-06-20 12:11 | Emergency (ER) | payer MEDICAID ==
[~2018-06-20] VITALS: Ht 172.7 cm; Wt 61.2 kg
[2018-06-20 12:18] VITALS: BP 141/73
== END 2018-06-20 15:15 | disposition home or self-care (01) ==
LOC: ER 12:11
DX: K86.1 Other chronic pancreatitis (principal); F17.210 Nicotine dependence, cigarettes, uncomplicated; Z88.8 Allergy status to other drugs, medicaments and biological substances
CPT/HCPCS: 36415; 83690

== ENCOUNTER 2018-08-30 16:52 | Emergency (ER) | payer MEDICAID ==
[~2018-08-30] VITALS: Ht 172.7 cm; Wt 59.0 kg
[2018-08-30 17:32] LABS: Urine WBC None Seen /hpf (0 - 5)
[2018-08-30 17:45] LABS: Urine Bacteria NONE SEEN /hpf (None Seen); Urine Blood Negative /uL (Negative); Urine Specific Gravity 1.002 (1.001-1.035)
[2018-08-30 18:11] LABS: Basophils # (auto) 0 uL; Basophils % (auto) 0.5 % (0.0-2.0); Eosinophils # (auto) 0.1 uL; Eosinophils % (auto) 0.8 % (0.0-7.0); Hemoglobin 12.4 g/dL (12.2-16.2); Lymphocytes # (auto) 1.5 uL; Lymphocytes % (auto) 18.9 % (10.0-50.0); Mean Corpuscular Hemoglobin 29.2 pg (28.0-32.0); Mean Corpuscular Hgb Conc. 33.6 g/dL (32.0-36.0); Monocytes # (auto) 0.5 uL; Monocytes % (auto) 6.1 % (0.0-12.0); Neutrophils % (auto) 73.7 % (37.0-80.0); Platelet Count (auto) 288 10^3/uL (140-450); Red Blood Cells 4.25 10^6/uL (4.0-5.20); Red Cell Distribution Width 13.6 % (11.8-14.3); White Blood Cell 8.1 10^3/uL (4.4-10.8)
[2018-08-30 20:12] VITALS: BP 134/83
[2018-08-30 21:48] LABS: Anion Gap 8.8 (5-15); Carbon Dioxide 27.2 mmol/L (21-32); Chloride 100 mmol/L (98-107); Potassium 4.1 mmol/L (3.5-5.1); Sodium 136 mmol/L (136-145)
[2018-08-30 21:49] LABS: BUN/Creatinine Ratio 11.1; Blood Urea Nitrogen 9 mg/dL (7-18); GFR African American 101 mL/min; GFR Non-African American 83 mL/min; Glucose 117 mg/dL (74-106)
[2018-08-30 21:50] LABS: Alkaline Phosphatase 75 U/L (45-117); Aspartate Aminotransferase 17 U/L (15-37)
[2018-08-30 21:52] LABS: Alanine Aminotransferase 21 U/L (13-56); Calcium 9.2 mg/dL (8.5-10.1)
[2018-08-30 21:53] LABS: Albumin 3.9 g/dL (3.4-5.0); Bilirubin, Total 0.4 mg/dL (0.2-1.0); Total Protein 8.1 g/dL (6.4-8.2)
== END 2018-08-30 20:22 | disposition home or self-care (01) ==
LOC: ER 17:18
DX: N83.202 Unspecified ovarian cyst, left side (principal); F17.210 Nicotine dependence, cigarettes, uncomplicated; Z88.6 Allergy status to analgesic agent; Z98.51 Tubal ligation status; Z88.8 Allergy status to other drugs, medicaments and biological substances
CPT/HCPCS: 36415; 74176; 80053; 81001; 85025

== ENCOUNTER 2018-11-25 16:25 | Inpatient (IN) | payer MEDICAID ==
[~2018-11-25] VITALS: Ht 172.7 cm; Wt 62.3 kg
[2018-11-25 17:24] LABS: Basophils # (auto) 0 uL; Basophils % (auto) 0.2 % (0.0-2.0); Eosinophils # (auto) 0 uL; Eosinophils % (auto) 0.2 % (0.0-7.0); Hematocrit 36.6 % (36.0-46.0); Hemoglobin 12.3 g/dL (12.2-16.2); Lymphocytes # (auto) 0.8 uL; Lymphocytes % (auto) 31.5 % (10.0-50.0); Mean Corpuscular Hemoglobin 29.9 pg (28.0-32.0); Mean Corpuscular Hgb Conc. 33.5 g/dL (32.0-36.0); Mean Corpuscular Volume 89.3 fL (80.0-100.0); Monocytes # (auto) 0.4 uL; Monocytes % (auto) 14.8 % (0.0-12.0); Neutrophils # (auto) 1.3 uL; Neutrophils % (auto) 53.3 % (37.0-80.0); Nucleated Red Blood Cells % 0.1 %; Platelet Count (auto) 143 10^3/uL (140-450); Red Cell Distribution Width 13.1 % (11.8-14.3); White Blood Cell 2.4 10^3/uL (4.4-10.8)
[2018-11-25 17:47] LABS: Albumin 3.5 g/dL (3.4-5.0); Calcium 8.3 mg/dL (8.5-10.1); Potassium 3.5 mmol/L (3.5-5.1)
[2018-11-25 17:52] LABS: BUN/Creatinine Ratio 13.2; Bilirubin, Total 0.3 mg/dL (0.2-1.0); Total Protein 7.7 g/dL (6.4-8.2)
[2018-11-25 18:48] LABS: Urine Bacteria FEW /hpf (None Seen); Urine Blood Negative /uL (Negative); Urine Specific Gravity 1.009 (1.001-1.035); Urine WBC 1 /hpf (0 - 5)
[2018-11-25] MEDS ORDERED: SODIUM CHLORIDE 0.9% 1,000 ML IV ONE (22:44)
[2018-11-25] MEDS ORDERED: ONDANSETRON HCL 4 MG/2 ML VIAL IV ONE (22:45)
[2018-11-26] MEDS ORDERED: HYDROmorphone HCL 2 MG/ML VL IV ONE (01:00)
[2018-11-26] MEDS ORDERED: SODIUM CHLORIDE 0.9% 1,000 ML IV SCH (02:00)
[2018-11-26] MEDS ORDERED: ONDANSETRON HCL 4 MG/2 ML VIAL IV PRN (02:00)
[2018-11-26] MEDS ORDERED: MORPHINE SULFATE 4 MG/ML SYR/VIAL IV PRN (02:00)
[2018-11-26] MEDS ORDERED: NITROGLYCERIN 0.4 MG SL TAB SL PRN (02:00)
[2018-11-26] MEDS ORDERED: ACETAMINOPHEN 325 MG TAB PO PRN (02:00)
[2018-11-26] MEDS ORDERED: TEMAZEPAM 15 MG CAP PO PRN (02:00)
[2018-11-26] MEDS ORDERED: HYDROmorphone HCL 2 MG/ML VL IV PRN (02:00)
--- NOTE | 2018-11-26 04:00 | NUR ---
Admitted to Room 206 from ED. Pt denies pain at this time as she states she was medicated in ER. Oriented X5. Oriented to room, visiting hours and call light. NPO except a few ice chips. Pt states she is not on any medications at home and also states she is homeless. Social service referral made. No nausea and no diarrhea at this time. Placed on c-difff precautions due to history of c-diff and recent diarrhea.
[2018-11-26 05:29] VITALS: BP 113/76
--- NOTE | 2018-11-26 07:30 | NUR ---
Opening Shift Note Assumed care of patient, awake and alert. No S/S of distress/SOB or pain. Patient still NPO, tolerated well. Instructed on POC and to call for assist PRN, will continue to monitor for changes Q1hr and PRN.
[2018-11-26 07:53] LABS: Basophils # (auto) 0 uL; Eosinophils # (auto) 0 uL; Hemoglobin 11.8 g/dL (12.2-16.2); Lymphocytes # (auto) 0.4 uL; Mean Corpuscular Hemoglobin 29.6 pg (28.0-32.0); Mean Corpuscular Hgb Conc. 33.9 g/dL (32.0-36.0); Mean Corpuscular Volume 87.3 fL (80.0-100.0); Monocytes # (auto) 0.2 uL; Neutrophils # (auto) 0.8 uL
[2018-11-26 07:54] LABS: Basophils % (auto) 0.3 % (0.0-2.0); Eosinophils % (auto) 0.3 % (0.0-7.0); Hematocrit 34.8 % (36.0-46.0); Lymphocytes % (auto) 27.5 % (10.0-50.0); Monocytes % (auto) 13.9 % (0.0-12.0); Nucleated Red Blood Cells % 0.1 %; Platelet Count (auto) 136 10^3/uL (140-450); Red Blood Cells 3.98 10^6/uL (4.0-5.20); Red Cell Distribution Width 12.9 % (11.8-14.3)
[2018-11-26 08:10] LABS: White Blood Cell 1.4 10^3/uL (4.4-10.8)
[2018-11-26 08:15] LABS: Albumin 3.3 g/dL (3.4-5.0); BUN/Creatinine Ratio 15.6; Potassium 3.7 mmol/L (3.5-5.1)
[2018-11-26 08:18] LABS: Bilirubin, Total 0.2 mg/dL (0.2-1.0); Total Protein 7.3 g/dL (6.4-8.2)
[2018-11-26 08:19] VITALS: BP 107/69
--- NOTE | 2018-11-26 09:00 | NUR ---
Dr. Negrete at bedside.
[2018-11-26] MEDS: traMADol HCL 50 MG TAB PO PRN ×2 (09:48→19:50)
[2018-11-26] MEDS: PANTOPRAZOLE 40 MG/10 ML VIAL IV SCH (09:48)
--- NOTE | 2018-11-26 10:30 | NUR ---
JEAN CLAUDE CHOE at bedside.
--- NOTE | 2018-11-26 11:00 | NUR ---
Dr. Cohen at bedside.
[2018-11-26] MEDS: LACTATED RINGER'S 1,000 ML IV SCH ×2 (11:39→18:20)
[2018-11-26 12:14] VITALS: BP 117/64
--- NOTE | 2018-11-26 17:00 | NUR ---
Dr. Rosas at bedside discussed with patient and needs GI and Oncology discharge clearance for tomorrow, will endorse to next shift.
[2018-11-26 17:05] VITALS: BP 119/75
--- NOTE | 2018-11-26 20:00 | NUR ---
OPENING NOTE RECEIVED REPORT FROM ABDIRAHMAN RN. ASSUMING ROLE OF CARE OF PATIENT AT THIS TIME. PATIENT SHOWING NO SIGN OF DISTRESS, SHORTNESS OF BREATH, AND PATIENT STATES PAIN AT 8/10 FROM ABDOMEN. PATIENT TAKING TRAMADOL AND WILL BE ADMINISTERED WHEN AVAILABLE. PATIENT EDUCATED ON PLAN OF CARE FOR THE NIGHT. PATIENT VERBALIZED UNDERSTANDING. BED LOWERED, CALL LIGHT WITHIN REACH, AND PATIENT WILL BE ROUNDED ON EVERY HOUR AND NEEDED.
[2018-11-26 22:00] VITALS: BP 102/57
[2018-11-27] MEDS: LACTATED RINGER'S 1,000 ML IV SCH ×2 (00:35→07:15)
[2018-11-27 05:00] VITALS: BP 119/74
[2018-11-27 06:23] LABS: Hemoglobin 11.9 g/dL (12.2-16.2)
[2018-11-27 06:27] LABS: Mean Corpuscular Hgb Conc. 33.9 g/dL (32.0-36.0); Mean Corpuscular Volume 88.5 fL (80.0-100.0); Platelet Count (auto) 126 10^3/uL (140-450); Red Blood Cells 3.95 10^6/uL (4.0-5.20)
[2018-11-27 06:44] LABS: BUN/Creatinine Ratio 14.3; Calcium 8.2 mg/dL (8.5-10.1); Potassium 3.6 mmol/L (3.5-5.1)
[2018-11-27 06:58] LABS: White Blood Cell 1.5 10^3/uL (4.4-10.8)
[2018-11-27 06:59] LABS: Band Neutrophils % (manual) 0; Basophils % (manual) 0 (0.0-2.0); Blast Cells 0; Eosinophils % (manual) 0 (0-7); Metamyelocytes % 0; Myelocytes % 0; Promyelocytes % 0; Reactive Lymphocytes 0
--- NOTE | 2018-11-27 07:00 | NUR ---
CRITICAL LAB RECEIVED CALL FROM LAB. PATIENT HAD A CRITICAL LAB VALUE OF A WBC OF 1.5. THIS IS A .1 INCREASE FROM THE PREVIOUS 1.4. WILL ENDORSE TO ABDIRAHMAN ABRAMS.
--- NOTE | 2018-11-27 07:40 | NUR ---
OPENING SHIFT NOTE ASSUMED CARE OF PATIENT. PATIENT RESTING COMFORTABLY IN BED AT THIS TIME WITH EYES CLOSED. RESPIRATIONS EVEN AND UNLABORED. BED IN LOWEST LOCKED POSITION, CALL LIGHT WITHIN REACH. WILL CONTINUE TO MONITOR.
[2018-11-27] MEDS: PANTOPRAZOLE 40 MG/10 ML VIAL IV SCH (09:20)
[2018-11-27 11:26] LABS: Lymphocytes % (manual) 57 (10.0-50.0); Monocytes % (manual) 8 (0-12)
--- NOTE | 2018-11-27 11:38 | NUR ---
SPOKE WITH MD SPOKE WITH DR Francisca VÁZQUEZ. INFORMED OF LOW BLOOD SUGAR. NEW ORDERS RECEIVED TO ADVANCE DIET AND ORDER LIPASE. REQUESTING TO GET CLEARANCE FROM GI FOR DISCHARGE. PATIENT HAS BEEN NPO WILL ADVANCE DIET REQUESTED. CONTINUING TO MONITOR.
--- NOTE | 2018-11-27 13:00 | NUR ---
CLEAR LIQUID DIET PATIENT C/O PAIN AFTER CLEAR LIQUID LUNCH. WILL NOTIFY MD AND CONTINUE TO MONITOR.
[2018-11-27] MEDS: D5W/LACTATED RINGERS 1,000 ML IV SCH ×2 (14:30→22:10)
--- NOTE | 2018-11-27 14:30 | NUR ---
AT BEDSIDE DR BURRIS AT BEDSIDE AT THIS TIME. PATIENT TO RETURN NPO EXCEPT ICE CHIPS AT THIS TIME. CONTINUING TO MONITOR.
[2018-11-27] MEDS: FILGRASTIM(TBO) 480 MCG/0.8 ML SYRG SC SCH (16:15)
[2018-11-27 17:00] VITALS: BP 108/70
--- NOTE | 2018-11-27 17:12 | NUR ---
assessment Patient is a 38 year old female who is alert and oriented. Patients cognitive abilities are intact. Prior to admission patient lived home with friends and functioned independently. Patient informed me she is able to care for her own ADLs. Per patient she will return home to her prior living arrangements post discharge and family will transport her home. I informed patient she has a right to speak to a outreach and education social worker regarding all care. I informed patient she has a right to participate in any and all discharge planning. Patient is aware of visiting hours on the hospital floor. I informed patient she has a right to privacy. Patient does not have a POA and advanced directive. I have offered patient information on POA and advanced directives. I informed the patient the advantages and benefits of having an Advanced Directive. Patient verbalized understanding and agreed to discharge plan. Per consult patient is homeless. Patient informed me she is not homeless. Patient informed me she lives with friends and will return home with friends. Addendum: 11/27/18 at 1714 by Selena HOWARD Amended: Links added.
--- NOTE | 2018-11-27 18:30 | NUR ---
AT BEDSIDE DR Jared MONTOYA AT BEDSIDE. NEW ORDERS PLACED. WILL ENDORSE CARE TO NOC RN.
--- NOTE | 2018-11-27 18:59 | NUR ---
END OF SHIFT NOTE PATIENT AWAKE AND ALERT SITTING UP IN BED. NO S/S OF DISTRESS OR SOB NOTED. BED IN LOWEST LOCKED POSITION, CALL BACK WITHIN REACH. WILL ENDORSE CARE TO NOC RN.
[2018-11-27] MEDS: traMADol HCL 50 MG TAB PO PRN (20:00)
[2018-11-27 22:00] VITALS: BP 114/71
[2018-11-28] MEDS: D5W/LACTATED RINGERS 1,000 ML IV SCH ×2 (03:50→10:30)
[2018-11-28 05:25] VITALS: BP 92/54
[2018-11-28 05:41] LABS: Basophils # (auto) 0 uL; Basophils % (auto) 0.2 % (0.0-2.0); Eosinophils # (auto) 0 uL; Eosinophils % (auto) 0.7 % (0.0-7.0); Hematocrit 33.6 % (36.0-46.0); Hemoglobin 11.6 g/dL (12.2-16.2); Lymphocytes # (auto) 0.9 uL; Lymphocytes % (auto) 13.6 % (10.0-50.0); Mean Corpuscular Hgb Conc. 34.6 g/dL (32.0-36.0); Mean Corpuscular Volume 86.9 fL (80.0-100.0); Monocytes # (auto) 0.4 uL; Monocytes % (auto) 5.4 % (0.0-12.0); Neutrophils # (auto) 5.3 uL; Neutrophils % (auto) 80.1 % (37.0-80.0); Platelet Count (auto) 111 10^3/uL (140-450); Red Blood Cells 3.86 10^6/uL (4.0-5.20); Red Cell Distribution Width 12.9 % (11.8-14.3); White Blood Cell 6.6 10^3/uL (4.4-10.8)
[2018-11-28 05:51] LABS: BUN/Creatinine Ratio 9.3; Calcium 7.8 mg/dL (8.5-10.1); Potassium 3.3 mmol/L (3.5-5.1)
[2018-11-28] MEDS: PANTOPRAZOLE 40 MG/10 ML VIAL IV SCH (10:00)
[2018-11-28] MEDS: FILGRASTIM(TBO) 480 MCG/0.8 ML SYRG SC SCH (10:01)
[2018-11-28] MEDS ORDERED: POTASSIUM CHL 20 Meq TABLET PO ONE (11:15)
--- NOTE | 2018-11-28 11:18 | NUR ---
Dr. Cohen and Dr. Curry cleared patient for discharge, no new orders given.
--- NOTE | 2018-11-28 12:30 | NUR ---
PATIENT'S CONTACT INFORMATION Patient's cell phone number is [phone].
--- NOTE | 2018-11-28 13:30 | NUR ---
Patient tolerated solid diet and denies abdominal pain. All of meal consumed. Patient denies cramping or abdominal symptoms. Bowel sounds active in all four quadrants.
--- NOTE | 2018-11-28 15:24 | NUR ---
Discharge instructions given as ordered. Encourage to follow up with PMD as instructed. All questions and concerns addressed. Patient verbalized understanding. Patient stated she will call doctors to make follow-up appointments. Patient is living with friends and states she is not homeless. Medication reconciliation form completed and copy given to patient. Patient deinies home medications held in pharmacy. IV removed with catheter intact, pressure dressing applied. Patient taken to vehicle via wheelchair with all personal belongings, accompanied by staff and family member. No distress noted at time of departure.
[2018-12-01] MEDS ORDERED: METR500T PO (14:38)
== END 2018-11-28 15:24 | disposition home or self-care (01) | DRG 282 ==
LOC: ER 16:25 → CENTRAL 11-26 01:55
PROVIDERS: ADMIT Nurse Practitioner; ATTEND Internal Medicine
DX: K85.90 Acute pancreatitis without necrosis or infection, unspecified (principal); R65.10 Systemic inflammatory response syndrome (SIRS) of non-infectious origin without acute organ dysfunction; E03.9 Hypothyroidism, unspecified; F10.10 Alcohol abuse, uncomplicated; K86.1 Other chronic pancreatitis; F17.210 Nicotine dependence, cigarettes, uncomplicated; F41.9 Anxiety disorder, unspecified; Z59.0 Homelessness; F32.9 Major depressive disorder, single episode, unspecified; Z88.6 Allergy status to analgesic agent; Z88.5 Allergy status to narcotic agent; Z88.8 Allergy status to other drugs, medicaments and biological substances
CPT/HCPCS: 36415; 74176; 80048; 80053; 81001; 81025; 82150; 82607; 82962; 83605; 83615; 83690; 84436; 84443; 85007; 85025; 85027; 86703; 96361; 96374; 96375; C9113; G0378; J1447; J2405

== ENCOUNTER 2019-06-06 16:41 | Emergency (ER) | payer MEDICAID ==
[~2019-06-06] VITALS: Ht 172.7 cm; Wt 59.0 kg
[~2019-06-06 16:41] MED LIST changes: -HYDR-4683 PO; +HYDR-4833 PO; +METR500T PO
[2019-06-06 17:20] LABS: Basophils # (auto) 0 uL; Basophils % (auto) 0.5 % (0.0-2.0); Eosinophils # (auto) 0.1 uL; Eosinophils % (auto) 0.6 % (0.0-7.0); Hematocrit 35.3 % (36.0-46.0); Lymphocytes # (auto) 1.7 uL; Lymphocytes % (auto) 20.3 % (10.0-50.0); Mean Corpuscular Hemoglobin 30.2 pg (28.0-32.0); Mean Corpuscular Hgb Conc. 34.1 g/dL (32.0-36.0); Mean Corpuscular Volume 88.6 fL (80.0-100.0); Monocytes # (auto) 0.5 uL; Monocytes % (auto) 6.5 % (0.0-12.0); Neutrophils % (auto) 72.1 % (37.0-80.0); Nucleated Red Blood Cells % 0.1 %; Platelet Count (auto) 194 10^3/uL (140-450); Red Blood Cells 3.98 10^6/uL (4.0-5.20); Red Cell Distribution Width 12.8 % (11.8-14.3); White Blood Cell 8.3 10^3/uL (4.4-10.8)
[2019-06-06 17:28] LABS: Urine Bacteria NONE SEEN /hpf (None Seen); Urine Blood Negative /uL (Negative); Urine Specific Gravity 1.002 (1.001-1.035); Urine WBC <1 /hpf (0 - 5)
[2019-06-06 17:43] LABS: Calcium 8.9 mg/dL (8.5-10.1); Potassium 3.5 mmol/L (3.5-5.1)
[2019-06-06 17:46] LABS: BUN/Creatinine Ratio 11.8; Bilirubin, Total 0.7 mg/dL (0.2-1.0)
[2019-06-06 23:30] VITALS: BP 116/74
== END 2019-06-07 02:30 | disposition home or self-care (01) ==
LOC: ER 16:41
DX: O99.611 Diseases of the digestive system complicating pregnancy, first trimester (principal); K85.90 Acute pancreatitis without necrosis or infection, unspecified; O21.8 Other vomiting complicating pregnancy; Z3A.01 Less than 8 weeks gestation of pregnancy; Z88.5 Allergy status to narcotic agent; Z88.8 Allergy status to other drugs, medicaments and biological substances; Z98.51 Tubal ligation status; Z79.899 Other long term (current) drug therapy
CPT/HCPCS: 36415; 76801; 80053; 81001; 81025; 82150; 83690; 84702; 85025

== ENCOUNTER 2019-11-11 10:12 | Emergency (ER) | payer MEDICAID ==
[~2019-11-11] VITALS: Ht 172.7 cm; Wt 66.2 kg
[2019-11-11 10:27] VITALS: BP 136/88
== END 2019-11-11 11:50 | disposition home or self-care (01) ==
LOC: ER 10:12
DX: G44.209 Tension-type headache, unspecified, not intractable (principal)
CPT/HCPCS: 70450

== ENCOUNTER 2020-12-22 13:13 | Inpatient (IN) | payer MEDICAID ==
[~2020-12-22] VITALS: Ht 172.7 cm; Wt 63.2 kg
[2020-12-22] MEDS ORDERED: PANTOPRAZOLE 40 MG/10 ML VIAL INJ IV STA (13:27)
[2020-12-22] MEDS ORDERED: SODIUM CHLORIDE 0.9% 1,000 ML IVB ONE (13:30)
[2020-12-22] MEDS ORDERED: ONDANSETRON HCL 4 MG/2 ML VIAL IV ONE (13:30)
[2020-12-22] MEDS ORDERED: MORPHINE SULFATE 4 MG/ML SYR/VIAL IV ONE (13:30)
[2020-12-22 14:03] LABS: Basophils # (auto) 0 10 ^3/uL (0-0.2); Basophils % (auto) 0.6 % (0.0-2.0); Eosinophils # (auto) 0 10 ^3/uL (0-0.8); Eosinophils % (auto) 0.2 % (0.0-7.0); Hemoglobin 12.2 g/dL (12.2-16.2); Lymphocytes # (auto) 0.2 10 ^3/uL (0.4-5.4); Lymphocytes % (auto) 2.6 % (10.0-50.0); Mean Corpuscular Hemoglobin 30.6 pg (28.0-32.0); Mean Corpuscular Hgb Conc. 34.8 g/dL (32.0-36.0); Mean Corpuscular Volume 87.9 fL (80.0-100.0); Monocytes # (auto) 0.2 10 ^3/uL (0-1.3); Neutrophils # (auto) 7.8 10 ^3/uL (1.6-8.6); Neutrophils % (auto) 93.6 % (37.0-80.0); Platelet Count (auto) 228 10^3/uL (140-450); Red Blood Cells 3.98 10^6/uL (4.0-5.20); Red Cell Distribution Width 13.1 % (11.8-14.3); White Blood Cell 8.4 10^3/uL (4.4-10.8)
[2020-12-22 14:18] LABS: Albumin 3.9 g/dL (3.4-5.0); Calcium 9.3 mg/dL (8.5-10.1)
[2020-12-22 14:21] LABS: BUN/Creatinine Ratio 18.8; Bilirubin, Total 0.7 mg/dL (0.2-1.0); Total Protein 7.9 g/dL (6.4-8.2)
[2020-12-22] MEDS ORDERED: DOCUSATE SOD 100 MG CAP PO PRN (18:45)
[2020-12-22] MEDS ORDERED: ACETAMINOPHEN 325 MG TAB PO PRN (18:45)
[2020-12-22] MEDS: D5W/SOD CHL 0.45% 1,000 ML IV SCH (18:45)
[2020-12-22] MEDS ORDERED: NITROGLYCERIN 0.4 MG SL TAB SL PRN (18:45)
[2020-12-22] MEDS ORDERED: METOCLOPRAMIDE HCL 5MG/ml INJ 2ml VIAL IV PRN (18:45)
[2020-12-22] MEDS ORDERED: ALUM & MAG HYDROX-SIMETH LIQ(MAALOX) 30 ML PO PRN (18:45)
[2020-12-22] MEDS ORDERED: MORPHINE SULF INJ 2 MG/ML SYRINGE 1ML IV PRN ×2 (18:45)
[2020-12-22 21:15] VITALS: BP 100/66
[2020-12-22 21:32] LABS: Urine Bacteria FEW /hpf (None Seen); Urine Blood Negative /uL (Negative); Urine WBC 1 /hpf (0 - 5)
[2020-12-22 21:45] LABS: Alcohol, Urine < 3.0 mg/dL (0-10); Amphetamine Screen, Urine NEGATIVE (NEGATIVE); Barbiturate Scree,Urine NEGATIVE (NEGATIVE); Benzodiazephine Screen, Urine NEGATIVE (NEGATIVE); Cannabinoid Screen, Urine POSITIVE (NEGATIVE); Cocaine Screen, Urine NEGATIVE (NEGATIVE); Opiate Scree,Urine POSITIVE (NEGATIVE); Phencyclidine Screen, Urine NEGATIVE (NEGATIVE)
[2020-12-22] MEDS: SUCRALFATE 1 GM/10 ML ORAL SUSP PO SCH (22:00)
[2020-12-22] MEDS: GABAPENTIN 300 MG CAP PO SCH (22:00)
[2020-12-22] MEDS: HYDROcodone-ACET 5/325MG TAB PO PRN (22:01)
[2020-12-22 22:47] LABS: Cholesterol 174 mg/dL (< 200); HDL Cholesterol 64 mg/dL (40-59); LDL Cholesterol 94 mg/dL (< 100); Triglycerides 96 mg/dL (< 150)
[2020-12-23 01:52] VITALS: BP 99/63
[2020-12-23] MEDS: D5W/SOD CHL 0.45% 1,000 ML IV SCH ×3 (05:12→18:13)
[2020-12-23 05:22] VITALS: BP 100/59
[2020-12-23 05:45] LABS: Basophils # (auto) 0 10 ^3/uL (0-0.2); Basophils % (auto) 0.4 % (0.0-2.0); Eosinophils # (auto) 0.1 10 ^3/uL (0-0.8); Eosinophils % (auto) 1.5 % (0.0-7.0); Hematocrit 29.7 % (36.0-46.0); Hemoglobin 10.3 g/dL (12.2-16.2); Lymphocytes # (auto) 0.6 10 ^3/uL (0.4-5.4); Lymphocytes % (auto) 14.5 % (10.0-50.0); Mean Corpuscular Hemoglobin 31.1 pg (28.0-32.0); Mean Corpuscular Hgb Conc. 34.9 g/dL (32.0-36.0); Mean Corpuscular Volume 89.2 fL (80.0-100.0); Monocytes # (auto) 0.3 10 ^3/uL (0-1.3); Monocytes % (auto) 8.1 % (0.0-12.0); Neutrophils % (auto) 75.5 % (37.0-80.0); Nucleated Red Blood Cells % 0.2 %; Platelet Count (auto) 169 10^3/uL (140-450); Red Blood Cells 3.33 10^6/uL (4.0-5.20); Red Cell Distribution Width 13.2 % (11.8-14.3)
[2020-12-23 06:01] LABS: Calcium 7.9 mg/dL (8.5-10.1); Potassium 4.1 mmol/L (3.5-5.1)
[2020-12-23 06:05] LABS: Albumin 3.2 g/dL (3.4-5.0); BUN/Creatinine Ratio 19.7
[2020-12-23 06:07] LABS: Bilirubin, Total 0.5 mg/dL (0.2-1.0); Total Protein 6.7 g/dL (6.4-8.2)
[2020-12-23] MEDS: GABAPENTIN 300 MG CAP PO SCH ×3 (06:32→23:13)
[2020-12-23] MEDS: SUCRALFATE 1 GM/10 ML ORAL SUSP PO SCH ×2 (08:43→23:13)
[2020-12-23 08:53] VITALS: BP 100/64
[2020-12-23] MEDS: HYDROcodone-ACET 5/325MG TAB PO PRN ×2 (09:17→23:14)
[2020-12-23 13:00] VITALS: BP 118/68
[2020-12-23 17:00] VITALS: BP 103/73
[2020-12-23 22:00] VITALS: BP 111/81
[2020-12-23] MEDS ORDERED: PANTOPRAZOLE 40 MG/10 ML VIAL INJ IV SCH (22:00)
[2020-12-23] MEDS: ESOMEPRAZOLE 40 MG/5ml VIAL INJ IV SCH (23:12)
[2020-12-24] MEDS: D5W/SOD CHL 0.45% 1,000 ML IV SCH ×2 (02:45→10:15)
[2020-12-24 05:00] VITALS: BP 91/49
[2020-12-24] MEDS: GABAPENTIN 300 MG CAP PO SCH ×2 (06:53→13:26)
[2020-12-24 08:00] VITALS: BP 103/65
[2020-12-24] MEDS: ESOMEPRAZOLE 40 MG/5ml VIAL INJ IV SCH (10:14)
[2020-12-24] MEDS: SUCRALFATE 1 GM/10 ML ORAL SUSP PO SCH (10:14)
[2020-12-24 12:00] VITALS: BP 122/68
[2020-12-24 13:00] VITALS: BP 122/68
[2020-12-24] MEDS ORDERED: SUCR1SUS10 PO (13:30)
[2020-12-24] MEDS ORDERED: OMEP20TA PO (13:30)
[2020-12-24] MEDS ORDERED: PANC3600 PO (13:30)
[2020-12-24 16:00] VITALS: BP 112/73
[2020-12-24 16:10] VITALS: BP 122/68
== END 2020-12-24 17:00 | disposition home or self-care (01) | DRG 282 ==
LOC: ER 13:13 → OVERFLOW 18:44 → CENTRAL 20:48
PROVIDERS: ADMIT Hospitalist; ATTEND Hospitalist
DX: K86.0 Alcohol-induced chronic pancreatitis (principal); D64.9 Anemia, unspecified; M10.9 Gout, unspecified; E86.0 Dehydration; F32.9 Major depressive disorder, single episode, unspecified; F41.9 Anxiety disorder, unspecified; K21.9 Gastro-esophageal reflux disease without esophagitis; N92.0 Excessive and frequent menstruation with regular cycle; Z80.9 Family history of malignant neoplasm, unspecified; Z82.49 Family history of ischemic heart disease and other diseases of the circulatory system; Z88.6 Allergy status to analgesic agent; Z88.5 Allergy status to narcotic agent; Z88.8 Allergy status to other drugs, medicaments and biological substances; Z98.51 Tubal ligation status; Z87.19 Personal history of other diseases of the digestive system
CPT/HCPCS: 36415; 74176; 80053; 80061; 80307; 81001; 83690; 85025; 87426; 96361; 96374; 96375; C9113; G0378; J2405

== ENCOUNTER 2020-12-25 22:18 | Emergency (ER) | payer MEDICAID ==
[~2020-12-25] VITALS: Ht 172.7 cm; Wt 61.2 kg
[~2020-12-25 22:18] MED LIST changes: -METR500T PO; +PANC3600 PO
[2020-12-26] MEDS ORDERED: HYDROcodone-ACET 7.5/325MG TAB PO ONE (00:30)
[2020-12-26 06:12] VITALS: BP 108/68
== END 2020-12-26 06:14 | disposition home or self-care (01) ==
LOC: ER 22:19
DX: N83.201 Unspecified ovarian cyst, right side (principal); R10.12 Left upper quadrant pain; F12.10 Cannabis abuse, uncomplicated; Z98.51 Tubal ligation status; Z88.6 Allergy status to analgesic agent; Z88.8 Allergy status to other drugs, medicaments and biological substances
CPT/HCPCS: 76830; 76856